=== PATIENT | female | born 1990 | race Caucasian/White ===

== ENCOUNTER 2020-10-13 09:23 | Outpatient (CLI) | payer OTHER | END 2020-10-13 09:31 | disposition home or self-care (01) | LOC: RX STUDY 09:23 | DX: N94.89 Other specified conditions associated with female genital organs and menstrual cycle (principal); D25.0 Submucous leiomyoma of uterus; N94.6 Dysmenorrhea, unspecified ==

== ENCOUNTER 2024-03-05 06:53 | Day surgery (SDC) | payer OTHER ==
[2024-03-04 10:38] VITALS: BP 103/70
[~2024-03-05] VITALS: Ht 172.7 cm; Wt 67.1 kg
[~2024-03-05 06:53] MED LIST: ANIMAL CHEWS1 EACH PO; PEPCID AC20 MG PO
[2024-03-05] MEDS ORDERED: CEFAZOLIN SODIUM 1,000 MG VIAL ONE (13:23)
[2024-03-05] MEDS ORDERED: MORPHINE SULFATE 4 MG/ML VIAL IV ONE ×2 (16:50→17:20)
== END 2024-03-05 18:00 | disposition home or self-care (01) ==
LOC: CIR.AMB 06:53
PROVIDERS: ATTEND Surgery
DX: D48.61 Neoplasm of uncertain behavior of right breast (principal); J32.9 Chronic sinusitis, unspecified; Z91.013 Allergy to seafood